=== PATIENT | male | born 1980 | race Caucasian/White ===

== ENCOUNTER 2025-02-19 09:18 | Day surgery (SDC) | payer BC ==
[~2025-02-19] VITALS: Ht 182.9 cm; Wt 108.9 kg
[~2025-02-19 09:18] MED LIST: Lactated Ringer's 1,000 ML IV ONE; Lidocaine HCl 2% 10 ML SDA ONE
[2025-02-19] MEDS ORDERED: CeFAZolin Sodium 2,000 MG VIAL ONE (09:32)
[2025-02-19] MEDS ORDERED: Lactated Ringer's 1,000 ML IV ONE (09:42)
--- NOTE | 2025-02-19 10:03 | NUR ---
02/19/25 1003 PIA PANIAGUA RN TCR CHARTED ON INCORRECT PT AND DELETED ALL NOTES/ CHARTING
[2025-02-19] MEDS ORDERED: propofoL 20 ML IV ONE (10:19)
[2025-02-19] MEDS ORDERED: FentaNYL Citrate 50 MCG/ML 2 ML Injection ONE ×2 (10:19→12:28)
[2025-02-19] MEDS ORDERED: Bupivacaine 0.5% HCl 5 MG/ML 30MLVIAL ONE (10:19)
[2025-02-19] MEDS ORDERED: Midazolam HCl 1MG / ML 2ML Vial ONE (10:19)
[2025-02-19] MEDS ORDERED: Lidocaine HCl 2% 10 ML SDA ONE (10:54)
[2025-02-19] MEDS ORDERED: HYDROcodone 5-APAP 325 TAB ONE (12:32)
== END 2025-02-19 13:25 | disposition home or self-care (01) ==
LOC: ORSCSDS 09:18
PROVIDERS: Orthopaedic Surgery
PROC: 0LQ40ZZ Repair Left Upper Arm Tendon, Open Approach (ICD-10-PCS; principal; 2025-02-19 11:00)
DX: S46.212A Strain of muscle, fascia and tendon of other parts of biceps, left arm, initial encounter (principal)
CPT/HCPCS: A9270; C1713; J0690; J2003; J2250; J2704; J3010; J7120